=== PATIENT | male | born 1950 | race Hispanic/Latino ===

== ENCOUNTER 2022-03-19 09:00 | Emergency (ER) | payer OTHER ==
[2022-03-19 09:38] LABS: #Basophils 0.1 thou/uL (0.0-0.2); #Eosinphils 0.2 thou/uL (0.0-0.7); #Lymphocytes 2.6 thou/uL (1.20-3.40); #Monocytes 0.9 thou/uL (0.11-0.59); #Neutrophils 7.3 thou/uL (1.40-6.50); %Basophils 0.5 % (0.0-1.0); %Eosinophils 1.7 % (0.0-10.0); %Lymphocytes 23.7 % (21.0-51.0); %Monocytes 8.4 % (0.0-10.0); %Neutrophils 65.7 % (42.0-75.0); Hemoglobin 13.6 g/dL (14.0-18.0); Mean Corpuscular HGB CONC 32.3 g/dL (32.0-36.0); Mean Corpuscular Hemoglobin 30.8 pg (27.0-31.0); Mean Corpuscular Volume 95.4 fl (78.0-98.0); Mean Platelet Volume 9.4 fL (7.4-10.4); Platelet Count 206 thou/uL (130-400); RBC Distribution Width 11.8 % (11.5-14.5); Red Blood Cell (RBC) Count 4.42 mill/uL (4.70-6.10); White Blood Cell (WBC) Count 11.1 thou/uL (4.8-10.8)
[2022-03-19 09:41] LABS: PTT 30.7 sec (22.9-36.1); Prothrombin Time 13.7 sec (12.0-14.7)
[2022-03-19] MEDS ORDERED: FENTANYL 50 MCG/ML 1 ML VIAL ONE (09:48)
[2022-03-19] MEDS ORDERED: Boostrix 0.5 ML (Tdap) VIAL (>/=7 yrs of age) ONE (09:48)
[2022-03-19] MEDS ORDERED: Piperacillin/Tazobactam 3.375 GM VIAL ONE (09:48)
[2022-03-19 09:49] LABS: ALT (SGPT) 33 U/L (8-55); AST (SGOT) 41 U/L (5-34); Acetaminophen Less than 10.0 mcg/mL (10.0-30.0); Albumin 3.7 g/dL (3.4-4.8); Alcohol Less than 10 mg/dL (Less than 10); Alkaline Phosphatase 115 U/L (40-110); Anion Gap 12 mmol/L (10-20); BUN (Urea Nitrogen) 19 mg/dL (8.4-25.7); Bilirubin, Total 0.7 mg/dL (0.2-1.2); CK (CPK) 166 U/L (30-200); Calc. Creatinine Clearance 0 mL/min (70-130); Calcium 9.4 mg/dL (7.8-10.44); Carbon Dioxide 26 mmol/L (23-31); Chloride 99 mmol/L (98-107); Estimated GFR 70; Globulin 3.4 g/dL (2.4-3.5); Glucose 209 mg/dL (83-110); Lipase 61 U/L (8-78); Potassium 4.1 mmol/L (3.5-5.1); Protein, Total 7.1 g/dL (5.8-8.1); Salicylate Less than 8.0 mg/dL (15.0-30.0); Sodium 133 mmol/L (136-145)
[2022-03-19] MEDS ORDERED: Iopamidol-370 76% 500 ML 1 ML ONE (10:15)
== END 2022-03-19 11:30 | disposition home or self-care (01) ==
LOC: ERS 09:00
DX: F07.81 Postconcussional syndrome (principal); S22.41XA Multiple fractures of ribs, right side, initial encounter for closed fracture; V49.9XXA Car occupant (driver) (passenger) injured in unspecified traffic accident, initial encounter
CPT/HCPCS: 70450; 71045; 71260; 72125; 74177; 80307; 82550; 83690; 84484; 85025; 85610; 85730; 90471; 90715; 93005; 96374; 96375; G0390; J2543; J3010; Q9967